=== PATIENT | male | born 1950 | race Caucasian/White ===

== ENCOUNTER 2022-04-08 08:51 | Outpatient (CLI) | payer MEDICARE, SELFPAY ==
[2022-04-08 14:19] LABS: Albumin* 4.6 g/dL (3.3-5.0); Chloride* 103 mmol/L (96-114)
[2022-04-08 14:20] LABS: Potassium* 4.8 mmol/L (3.6-5.1); Sodium* 136 mmol/L (135-149)
[2022-04-08 14:22] LABS: Bilirubin Total* 0.7 mg/dL (0.1-1.5); Estimated Glomerular Filt Rate 81 ml/min
[2022-04-08 14:23] LABS: Alanine Aminotransferase* 40 U/L (4-50); Alkaline Phosphatase* 55 U/L (40-150); Aspartate Amino Transferase* 38 U/L (12-35); Blood Urea Nitrogen* 23 mg/dL (7-30); Calcium* 9.3 mg/dL (8.4-10.6); Carbon Dioxide* 23 mmol/L (20-32); Total Protein* 7.1 g/dL (6.0-8.3)
[2022-04-08 14:26] LABS: Glucose* 142 mg/dL (60-115)
[2022-04-08 14:54] LABS: Creatinine Urine 121.3 mg/dL
[2022-04-08 14:56] LABS: Microalbumin Creatinine Ratio 20 mg/g (0-30); Microalbumin Urine 3 mg/dL
== END 2022-04-08 08:52 | disposition home or self-care (01) ==
LOC: FRMREF 08:53
PROVIDERS: PCP Family Medicine; Visit Provider Family Medicine
DX: E11.9 Type 2 diabetes mellitus without complications (principal); E78.5 Hyperlipidemia, unspecified; I10 Essential (primary) hypertension; Z79.4 Long term (current) use of insulin
CPT/HCPCS: 80053; 82043; 82570

== ENCOUNTER 2022-08-03 07:31 | Outpatient (CLI) | payer MEDICARE, SELFPAY | END 2022-08-03 07:32 | disposition home or self-care (01) | LOC: NFLDREF 08-04 03:03 | PROVIDERS: PCP Family Medicine; Referring Provider Family Medicine; Visit Provider Family Medicine | DX: E11.9 Type 2 diabetes mellitus without complications (principal); E78.1 Pure hyperglyceridemia; I10 Essential (primary) hypertension; Z79.4 Long term (current) use of insulin | CPT/HCPCS: 80053; 80061 ==

== ENCOUNTER 2022-10-28 07:13 | Outpatient (CLI) | payer MEDICARE, SELFPAY | END 2022-10-28 07:14 | disposition home or self-care (01) | PROVIDERS: PCP Family Medicine; Visit Provider Family Medicine | DX: Z00.00 Encounter for general adult medical examination without abnormal findings (principal); I10 Essential (primary) hypertension | CPT/HCPCS: 80053 ==

== ENCOUNTER 2023-03-16 08:30 | Outpatient (RCR) | payer MEDICARE, SELFPAY ==
--- NOTE | 2023-03-03 12:52 | PT.OPE ---
PT [place] [facility] PT [facility] Eval Start: 03/02/23 15:09 Freq: Status: Active Protocol: Document 03/02/23 15:09 LUC (Rec: 03/02/23 15:12 LUC [id number]) E-signed By Slava Kwong DPT, MS Physical Therapy Outpatient Evaluation Insurance Information Recert Due Date 05/31/23 Insurance Name Medicare B,Blue Cross/Blue Shield Medical Diagnosis Dorsalgia, unspecified Treating Diagnosis B LS pain with B-sided (L>R) LS radicular sxs, imbalance, decreased LS and LE flexibility, and B LE and core weakness Subjective Subjective Pt presents to PT with c/o acute onset of severe L LS pain with L-sided radicular sxs over the past 3 weeks. Sxs began while crawling under his deck prepping for installation of new boards with immediate onset of high levels of pain and L-sided radicular sxs extending from his L buttock distally to his Achilles tendon. Denies bowel or bladder changes but has had difficulty controlling his L ankle over the past 2 days. Has not worked since sx onset and plans on retiring from his [employer] business. A few incidents of LS pain over his life but chiropractic treatment resolved sxs. Had 2 chiropractic sessions with a different provider than the one he typically sees with elevated sxs following manipulations. Plans on having an MRI soon if he can afford it since he hopes to have a LS injection and wants to ensure it is effective. Prednisone provided temporary relief. Recent radiographs found multilevel degenerative disc disease with prominent bridging osteophytes at L2-3; L5-S1 facet degeneration without pars defect or spondylolisthesis. PMH includes DM-II and LS OA. Twisting most aggravating activity with no directional preference of movement. PMH includes DM-II and LS OA. AGGR factors: extended standing, lifting, pulling, carrying objects, twisting. ALLEV factors: heat, walking, ibuprofen. Pt hopes to decrease pain and radicular sxs to return to PLOF. Pain Comments 3-11/16 Current Work Status Job Status Change Occupation Planning on retiring from [employer] company Preferred Name Rich Precautions Therapy Limitations/Systems Review Not Limited Objective Functional Test Performed & Score Modified OSWESTRY: 66% Assessment Assessment/Impression Pt displays LS flex directional preference of movement with signs and symptoms consistent with L- sided LS radiculopathy. LS OA and DDD appear to be leading to sxs. + L slump testing with sciatic neural tension. Limited L ankle DF AROM and foot drop with gait is concerning but this did improve following trial of LS traction. Instructed pt to contact his MD if foot drop sxs progress. L LE SKTC stretch and hooklying in supine provided sx relief. Good response to LS mechanical traction, stretching, strengthening exercises with decreased L LS pain and radicular sxs following. He will benefit from continued skilled therapy to address these limitations. Primary Functional Limitations extended standing, lifting, pulling, carrying objects, twisting Plan of Care Rehabilitation Potential Good Rehabilitation Potential Comments Due to degenerative LS changes Physical Therapy Goals Short-term goals to be completed in 4 weeks: 1. Pt will display improved L ankle DF AROM >10 deg with no foot drop with amb to improve quality of gait. 2. Pt will report improved tolerance to standing >10 min with no elevation in LS radicular sxs to improve rich to work and daily activities. Long-term goals to be completed in 10 weeks: 1. Pt will be independent and compliant with HEP 2. Pt will display improved B hip flex, ABD and ext, and abdominal strength of >4/5 to improve tolerance to work activities. 3. Pt will be able to walk for >8 minutes with no elevation in LS pain or radicular sxs to improve cardiovascular health and perform work duties. 4. Pt will report >75% improvement in modified OSWESTRY questionnaire to significantly improve tolerance to functional activities. Coordination/Communication With Referral Source Treatment Plan/Direct Interventions Joint Mobilization,Manual Therapy,Therapeutic Exercises, Traction (Mechanical) Frequency/Duration 1-2x per week for at least 6- 10 visits, decreasing frequency as able. Patient Will Be Discharged From Therapy Completion of LTG(s),Skills Plateau,Independent w/HEP, Independently Progressing Evaluation Billing Untimed Code Treatment Minutes 24 Complexity Moderate Certification Information Initial Certification Date 03/02/23 Ending Certification Date 05/31/23 Provider Signature Shows Agreement With POC & Medical Necessity Physician Signature & Date Requested Please Sign/Date Here Physician Comment/Change : Physician NPI Number #
== END 2023-06-07 15:57 | disposition home or self-care (01) ==
PROVIDERS: PCP Family Medicine; Visit Provider Internal Medicine
DX: M54.9 Dorsalgia, unspecified (principal); Z51.89 Encounter for other specified aftercare
CPT/HCPCS: 97012; 97110; 97162

== ENCOUNTER 2023-03-23 07:53 | Outpatient (CLI) | payer MEDICARE, SELFPAY ==
--- NOTE | 2023-03-23 08:15 | CRLHL7_ITS ---
For Patients: As a result of the Century Cures Act, medical imaging exams and procedure reports are released immediately into your electronic medical record. You may view this report before your referring provider. If you have questions, please contact your health care provider. INDICATION: Dorsalgia TECHNIQUE: Sagittal and axial T1, sagittal and axial T2 and sagittal STIR images were obtained. COMPARISON: Lumbar spine radiographs dated 02/09/2023. FINDINGS: Sagittal alignment of the lumbar spine within normal limits. No compression fractures. No paraspinal or epidural mass. The distal cord/conus medullaris appears normal conus terminates normally at the upper L1 level. No disc herniation or stenosis at the T11-12 or T12-L1 levels. At L1-2 there is degenerative disc desiccation there is mild circumferential annular bulging and anterior marginal osteophytes the mild ventral thecal sac deformity without stenosis of the spinal canal or neural foramen. At L2-3 degenerative disc desiccation. Prominent right anterolateral endplate bridging osteophytes. No stenosis of the spinal canal or neural foramen. At L3-4 degenerative disc desiccation. Mild circumferential disc bulge with small anterior marginal osteophytes. The spinal canal but the and neural foramen are adequately patent. At L4-5 degenerative disc desiccation mild annular bulge with anterolateral endplate osteophytes. Prominence of dorsal epidural fat the spinal canal adequately patent. Mild right neural foraminal narrowing. At L5-S1 degenerative disc space narrowing. Circumferential disc bulge with marginal osteophytes. Mild facet hypertrophy. There is mild to moderate left foraminal narrowing where disc protrusion osteophyte contacts the exiting left L5 nerve root no central stenosis. IMPRESSION: 1. Mild to moderate multilevel lumbar spondylosis as described in detail above. 2. At L5-S1 left posterolateral disc osteophyte complex contacts the left L5 nerve root within the mildly narrowed neural foramina. 3. A mild disc bulging with endplate osteophytes at the other lumbar levels without high-grade stenosis at any lumbar level. Dictated by Nimesh Yen MD @ 03/23/2023 10:49:04 AM (Electronically Signed)
== END 2023-03-23 07:54 | disposition home or self-care (01) ==
PROVIDERS: PCP Family Medicine; Visit Provider Internal Medicine
DX: M54.9 Dorsalgia, unspecified (principal); M47.896 Other spondylosis, lumbar region; M51.26 Other intervertebral disc displacement, lumbar region
CPT/HCPCS: 72148

== ENCOUNTER 2023-03-24 10:04 | Outpatient (CLI) | payer MEDICARE, SELFPAY | END 2023-03-24 10:05 | disposition home or self-care (01) | PROVIDERS: PCP Family Medicine; Visit Provider Family Medicine | DX: I10 Essential (primary) hypertension (principal) | CPT/HCPCS: 80053; 82043; 82570 ==

== ENCOUNTER 2023-04-20 08:46 | Outpatient (CLI) | payer MEDICARE, SELFPAY | END 2023-04-20 08:47 | disposition home or self-care (01) | LOC: INJ CL 08:47 | PROVIDERS: PCP Family Medicine; Visit Provider Family Medicine | DX: M51.26 Other intervertebral disc displacement, lumbar region (principal); M54.16 Radiculopathy, lumbar region | CPT/HCPCS: 64483; J1100; Q9966 ==

== ENCOUNTER 2023-09-28 07:06 | Outpatient (CLI) | payer MEDICARE, SELFPAY ==
--- OUTSIDE RECORDS SUMMARY | 2023-09-28 07:08 | XMS_ITS | Clinical Summary ---
Author Name Unknown Organization [facility] Address [place], [place] [address] Care Team Providers Care Mice Raiser Name Role Phone Tami Fowler Primary Primary Care Provider Unavailabl e Allergies No known active allergies Medications Medication Sig Dispensed Refills Start Date End Date Status atorvastatin (LIPITOR) 10 mg tablet TAKE ONE TABLET BY MOUTH ONE TIME DAILY AT BEDTIME* 03/20/2023 Active famotidine (PEPCID) 20 mg tablet TAKE ONE TABLET BY MOUTH ONE TIME DAILY* 03/24/2023 Active Basaglar KwikPen U-100 Insulin 100 unit/mL (3 mL) pen inject 40-60 (55u) subcutaneously at bedtime* 02/17/2023 Active HumaLOG KwikPen Insulin 100 unit/mL inpn pen inject 15-30 units (22u) subcutaneously three times daily with meals* 04/02/2023 Active losartan (COZAAR) 50 mg tablet TAKE ONE TABLET BY MOUTH ONE TIME DAILY* 03/20/2023 Active metFORMIN (GLUCOPHAGE) 500 mg tablet 04/18/2023 Active UltiCare Pen Needle 32 gauge x 5/32 USE DIRECTED.* 01/11/2023 Active Ozempic 1 mg/dose (4 mg/3 mL) pen 04/08/2023 Active durable medical equipment (DME)Indications:L umbar disc herniation,Lumbar radiculopathy,Left leg weakness,Left foot drop Left AFO for chronic foot drop, 99 months. 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 Encounters Date Type Department Care Team Description 07/19/2023 8:20 AM CDT Office Visit [facility] [address] [place] [address] Manuelito Marvin MD Musculoskeletal Problem (Follow up back and leg pain ) 07/19/2023 Travel from Last 3 Months Immunizations Name Administration Dates Next Due Tdap 08/20/2008 Social History Tobacco Use Types Packs/Day Years Used Date Smoking Tobacco: Former Cigarettes Smokeless Tobacco: Never Tobacco Cessation:Counseling Given: Not Answered Alcohol Use Standard Drinks/Week Comments Not Asked 0 (1 standard drink = 0.6 oz pur e alcohol) Alcoholic Drinks/day: 0 Social Connections Answer Date Recorded Frequency of Communication with Friends and Fami ly Not on file 04/19/2023 Sex and Gender Information Value Date Recorded Sex Assigned at Not on file Gender Identity Not on file Sexual Orientation Not on file Obstetrics History Last Filed Vital Signs Vital Sign Reading Time Taken Comments Blood Pressure 150/79 07/19/2023 8:24 AM CDT Pulse 96 07/19/2023 8:24 AM CDT Temperature 36.7 ??C (98.1 ??F) 07/19/2023 8:24 AM CD T Respiratory Rate 16 07/11/2002 12:00 AM PEAT SHREDDER TENDER Oxygen Saturation 96% 07/19/2023 8:24 AM CDT Inhaled Oxygen Concentration - - Weight 116.1 kg (256 lb) 07/19/2023 8:24 AM CDT Height 198.1 cm (6' 6) 11/04/2009 3:23 PM CDT Body Mass Index - - Plan of Treatment Upcoming Encounters Date Type Department Care Team (Late st Contact Info) Description 10/21/2023 8:20 AM CDT Office Visit [facility] [address] [place] [address] Manuelito Marvin MD [address] [place] [address] Health Maintenance Due Date Last Done Comments Depression screening for age 12+ 1964 BMI (ht and wt on same day) for age 18+ 1970 Hepatitis C screening for age 18-79 1970 Colonoscopy through age 75 1997 Lipids for age 45-75 1997 Zoster (shingles) series for age 50+ (1 of 2) 10/16/19 03 AAA screening age 65-74 2017 Medicare Wellness for age 65+ 2017 Pneumococcal series for age 65+ (1 of 1 - PCV) 018 Tetanus booster 08/20/2018 08/20/2008 COVID-19 vaccine series (2 - 2022- season) 3 09/28/2020 Influenza for age 65+ 01/09/2024 Tdap Completed 08/20/2008 Care Teams Mice Raiser Relationship Specialty Start Date End Date , No Primary . PCP - General 11/04/09
--- OUTSIDE RECORDS SUMMARY | 2023-09-28 07:08 | XMS_ITS | Data Portability ---
Author Name Unknown Address [address] [place] [address] Phone [phone] Organization [facility], Main Office Address [address] [address] Assessment Encounter Date Assessment Date Assessment LastModified by Organization Details LastModified Time 06/08/2022 06/08/2022 1. Basal carcinoma left preauricular region Verbally and with the digital board we reviewed Mohs surgery versus standard surgery in the presence of his spouse. Reviewed pain discomfort downtime bleeding chance of infection signs and symptoms of infection suture removal length of scar versus the width of the scar Written and verbal informed consent obtained Mohs case number [id number] Cleansed with alcohol, anesthetized 1% lidocaine with epinephrine, ropivacaine, Marcaine with epinephrine. Stage I: Curette debulk. 1/2 to 2 mm margins taken down to the deep dermis and subcutis No residual basal carcinoma identified Total stages 1, total sections 1 final defect 1.5 cm Intermediate closure performed by removing redundancy superior and inferior undermined anterior 1/2 cm. Posterior a few millimeters hemostased obtained electrocautery closed with 4-0 Vicryl 4-0 running locked Prolene for an intermediate closure of 4.9 cm. Pressure dressing applied. Typewritten verbal wound care instructions given Follow-up in 1 week for suture removal. [id number] Not available 06/09/2022 00:09:26 Plan of Treatment Reminders Order Date Submit Date Provider Last Modified By Organization Details Last Modified Time Details Appointments None record ed. Lab None record ed. Referral None record ed. Procedures None record ed. Surgeries None record ed. Imaging None record ed. Medication Orders None record ed. Patient TargetsNo targets recorded. Patient InstructionsNo instructions recorded. Reason for Referral None Reported. Results Created Date Observation Date Name Description Value Unit Range Abnormal Flag LastModifiedBy Organization Detail LastModifiedTime Result Notes None recorded. Medical Equipment None Reported. Medications Name Sig Start Date Stop Date Status Note LastModified by Organization Details LastModified Time losartan 50 mg tablet TAKE ONE TABLET BY MOUTH ONE TIME DAILY active Not Available Not Available N ot Available metformin 500 mg tablet TAKE TWO TABLETS BY MOUTH TWICE DAILY active Not Available Not Available No t Available atorvastatin 10 mg tablet TAKE ONE TABLET BY MOUTH ONE TIME DAILY AT BEDTIME active Not Available Not Available N ot Available famotidine 20 mg tablet TAKE ONE TABLET BY MOUTH ONE TIME DAILY active Not Available Not Available N ot Available UltiCare Pen Needle 31 gauge x 5/16 USE TO INJECT INSULIN FOUR TIMES DAILY DIRECTED active Not Available Not Available No t Available Lantus Solostar U-100 Insulin 100 unit/mL (3 mL) subcutaneous pen inject 40-60 units under the skin at bedtime active Not Available Not Available No t Available Humalog KwikPen (U-100) Insulin 100 unit/mL subcutaneous inject 15 - 30 units by subcutaneou s route three times daily with meals. active Not Available Not Available No t Available UltiCare Pen Needle 32 gauge x 5/32 USE DIRECTED. active Not Available Not Available No t Available Ozempic 0.25 mg or 0.5 mg (2 mg/1.5 mL) subcutaneous pen injector inject 0.25 mg under the skin once weekly for 4 weeks then increase to 0.5 mg once weekly active Not Available Not Available No t Available Ozempic 1 mg/dose (4 mg/3 mL) subcutaneous pen injector inject 1mg by subcutaneou s route once weekly. active Not Available Not Available No t Available Vitals None Recorded Social History None recorded. Functional Status None recorded. Mental Status None recorded. Family History Nothing Reported. Medical History No medical history recorded. Past Encounters Encounter ID Performer Location Encounter Start Date Encounter Closed Date Diagnosis/Indication Diagnosis SNOMED-CT Code [id number] Sonia Gonzalez MD Main Office [address] [address] 06/08/2022 09:48:43 06/14/2022 23:54:25 Basal cell carcinoma of face [id number] Health Concerns Section Related Observation LastModified by Organization Detai ls LastModified Time None Recorded Concern Status LastModified by Organization Details LastModified Time None Recorded Advance Directives Directive None Recorded Payers Encounter Date Sequence Insurance Name Policy Number Policy Fernando Covered Member ID Fernando Member ID Guarantor Name 06/08/2022 1 [facility] (MEDICARE REPLACEMENT PPO) [id number] Zia Arauz [id number] Zia Arauz Notes Date Note Type Note Provider Name and Address Organization Details Recorded Time 06/08/2022 text/html HPI Notes: 71-year-old male presents with his spouse for Mohs surgery of a biopsy-proven basal carcinoma left preauricular region. Past medical history, family history, and social history are unchanged since the visit in [place] He is on Plavix and baby aspirin Anastasios A. MD [facility] [place], [address], [facility] 06/14/2022 23:53:32
== END 2023-09-28 07:07 | disposition home or self-care (01) ==
PROVIDERS: PCP Family Medicine; Visit Provider Family Medicine
DX: Z00.00 Encounter for general adult medical examination without abnormal findings (principal); I10 Essential (primary) hypertension; E78.5 Hyperlipidemia, unspecified; E11.9 Type 2 diabetes mellitus without complications; Z79.4 Long term (current) use of insulin
CPT/HCPCS: 80053; 80061; 82043; 82570; 82607; 86803; G0103

== ENCOUNTER 2024-01-04 06:59 | Outpatient (CLI) | payer MEDICARE, SELFPAY ==
--- OUTSIDE RECORDS SUMMARY | 2024-01-04 07:03 | XMS_ITS | Clinical Summary ---
Author Organization [employer] [facility] Address [place], [place] [address] Care Team Providers Care Enameler Name Role Phone Tami Fowler Primary Primary [...] Active UltiCare Pen Needle 32 gauge x 32 USE DIRECTED.* 01/11/2023 Active Ozempic 1 mg/dose (4 mg/3 mL) pen 04/08/2023 Active durable medical equipment (DME)Indications:L umbar disc herniation,Lumbar radiculopathy,Left leg weakness,Left foot drop Left AFO for chronic foot drop, 99 months. 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 Encounters Date Type Department Care Team Description 10/21/2023 8:20 AM CDT Office Visit [facility] [address] [place] [address] Manuelito Marvin MD Musculoskeletal Problem (Follow up back pain) 10/21/2023 Travel from Last 3 Months Immunizations Name Administration Dates Next Due Tdap 08/20/2008 Social History Tobacco Use Types Packs/Day Years Used Date Smoking Tobacco: Former Cigarettes Smokeless Tobacco: Never Tobacco Cessation:Counseling Given: Yes Alcohol Use Standard Drinks/Week Comments Not Asked [...] Sign Reading Time Taken Comments Blood Pressure 144/77 10/21/2023 8:25 AM CDT Pulse 86 10/21/2023 8:25 AM CDT Temperature 36.6 ??C (97.9 ??F) 10/21/2023 8:25 AM CD T Respiratory Rate 16 07/11/2002 12:0 0 AM RN MOBILE Oxygen Saturation 95% 10/21/2023 8:25 AM CDT Inhaled Oxygen Concentration - - Weight 118.8 kg (261 lb 14.4 oz) 10/21/2023 8:25 AM CDT Height 198.1 cm (6' 6) 11/04/2009 3:23 PM CDT Body Mass Index - - Plan of Treatment Health Maintenance Due Date Last Done Comments [...] 65+ 01/09/2024 Tdap Completed 08/20/2008 Care Teams Enameler Relationship Specialty Start Date End Date , No Primary . PCP - General 11/04/09
--- NOTE | 2024-01-04 07:15 | CRLHL7_ITS ---
For Patients: As a result of the Century Cures Act, medical imaging exams and procedure reports are released immediately into your electronic medical record. You may view this report before your referring provider. If you have questions, please contact your health care provider. INDICATION: Personal history of nicotine dependence. TECHNIQUE: Ultrasound aorta with color Doppler analysis. COMPARISON: None. FINDINGS: The proximal abdominal aorta measures 2.9 x 2.9 cm, mid aorta measures 2.3 x 2.4 cm, distal aorta measures 1.9 x 2.1 cm, right common iliac artery measures 1.2 x 1.2 cm, and the left common iliac artery measures 1.2 x 1.2 cm. There are no periaortic abnormalities evident. IMPRESSION: No abdominal aortic aneurysm. Dictated by Fabian Ng MD @ 01/04/2024 12:19:59 PM (Electronically Signed)
== END 2024-01-04 07:00 | disposition home or self-care (01) ==
LOC: US 07:01
PROVIDERS: PCP Family Medicine; Visit Provider Family Medicine
DX: Z13.6 Encounter for screening for cardiovascular disorders (principal); Z87.891 Personal history of nicotine dependence
CPT/HCPCS: 76706

== ENCOUNTER 2024-11-28 14:29 | Outpatient (CLI) | payer MEDICARE, SELFPAY ==
--- NOTE | 2024-11-28 14:45 | CRLHL7_ITS ---
For Patients: As a result of the Century Cures Act, medical imaging exams and procedure reports are released immediately into your electronic medical record. You may view this report before your referring provider. If you have questions, please contact your health care provider. INDICATION: Right leg pain. TECHNIQUE: Ultrasound venous duplex right lower extremity. Compression venous exam was performed using brito-scale, color Doppler, and spectral Doppler analysis. COMPARISON: None. FINDINGS: Patent right common femoral vein, femoral vein, popliteal vein, and visualized calf veins. IMPRESSION: No deep venous thrombosis detected in the right lower extremity. Dictated by Paulie Cruz MD @ 11/28/2024 3:00:29 PM (Electronically Signed)
== END 2024-11-28 14:30 | disposition home or self-care (01) ==
LOC: US 14:30
PROVIDERS: PCP Family Medicine; Visit Provider Family Medicine
DX: M79.661 Pain in right lower leg (principal)
CPT/HCPCS: 93971

== ENCOUNTER 2025-01-15 07:30 | Outpatient (CLI) | payer MEDICARE, SELFPAY | END 2025-01-15 07:31 | disposition home or self-care (01) | PROVIDERS: PCP Family Medicine; Visit Provider Family Medicine | DX: Z00.00 Encounter for general adult medical examination without abnormal findings (principal); E11.9 Type 2 diabetes mellitus without complications; E78.1 Pure hyperglyceridemia; I10 Essential (primary) hypertension; Z79.4 Long term (current) use of insulin | CPT/HCPCS: 80053; 80061; 82043; 82570; 82607; G0103 ==